=== PATIENT | male | born 1975 | race Two or more races ===

== ENCOUNTER 2017-11-04 17:45 | Emergency (ER) | payer SELFPAY ==
[2017-11-04 18:01] VITALS: BP 115/91; PULSE 109; TEMP 98.1; BMI 30.1
--- NOTE | 2017-11-04 18:19 | PDOC ---
History of Present Illness - General History Source: Patient Exam Limitations: No Limitations - History of Present Illness Initial Comments: 11/04/17 18:54 The patient is a 42 year old male, with no significant past medical history, who presents to the emergency department complaining of a subjective fever, chills, and dry cough since last night. Patient reports associated episodes of nausea and vomiting(nonbloody/nonbilious), but denies any abdominal pain, diarrhea, or constipation. Patient reports he has been taking Motrin for his fever, with mild relief. Patient denies any joint aches, headache, dizziness, sore throat, or ear ache. He denies any chest pain, shortness of breath, diaphoresis, or palpitations. He denies any dysuria, hematuria, frequency, or urgency. He denies any recent travel or sick contacts. Allergies: NKDA Past Surgical History: b/l inguinal hernia Social History: Current everyday smoker. No ETOH or recreational drug use. <Sammy Arndt - Last Filed: 11/04/17 18:54> <Meche Story - Last Filed: 11/04/17 19:14> - General Chief Complaint: Cold Symptoms Stated Complaint: fever,chills,dry cough,vomiting Time Seen by Provider: 11/04/17 18:19 Past History <Sammy Arndt - Last Filed: 11/04/17 18:54> - Past Medical History COPD: No Other medical history: pt denies - Surgical History Abdominal Surgery: Yes (B/L INGUINAL HERNIA.) - Suicide/Smoking/Psychosocial Hx Smoking History: Current every day smoker Have you smoked in the past 12 months: No Number of Cigarettes Smoked Daily: 1 Information on smoking cessation initiated: Yes 'Breaking Loose' booklet given: 11/04/17 Hx Alcohol Use: No Drug/Substance Use Hx: No Substance Use Type: Marijuana <Meche Story - Last Filed: 11/04/17 19:14> - Past Medical History Allergies/Adverse Reactions: Allergies Allergy/AdvReac Type Severity Reaction Status Date / Time No Known Allergies Allergy Verified 11/04/17 17:47 Home Medications: Ambulatory Orders Oseltamivir Phosphate [Tamiflu -] 75 mg PO BID #10 capsule 11/04/17 Review of Systems - Review of Systems Able to Perform ROS?: Yes Comments:: 11/04/17 18:54 GENERAL/CONSTITUTIONAL: Yes fever, chills. No weakness. HEAD, EYES, EARS, NOSE AND THROAT: No change in vision. No ear pain or discharge. No sore throat. CARDIOVASCULAR: No chest pain or shortness of breath. RESPIRATORY: Yes cough. No wheezing, or hemoptysis. GASTROINTESTINAL: Yes nausea, vomiting. No diarrhea or constipation. GENITOURINARY: No dysuria, frequency, or change in urination. MUSCULOSKELETAL: No joint or muscle swelling or pain. No neck or back pain. SKIN: No rash NEUROLOGIC: No headache, vertigo, loss of consciousness, or change in strength/ sensation. ENDOCRINE: No increased thirst. No abnormal weight change. HEMATOLOGIC/LYMPHATIC: No anemia, easy bleeding, or history of blood clots. ALLERGIC/IMMUNOLOGIC: No hives or skin allergy. <Arndt,Giomilsy - Last Filed: 11/04/17 18:54> *Physical Exam - Vital Signs Last Vital Signs Temp Pulse Resp BP Pulse Ox 98.1 F 109 H 18 115/91 98 11/04/17 17:46 11/04/17 17:46 11/04/17 17:46 11/04/17 17:46 11/04/17 17:46 - Physical Exam Comments: 11/04/17 18:55 GENERAL: Awake, alert, and fully oriented, in no acute distress. Warm to the touch. HEAD: No signs of trauma EYES: PERRLA, EOMI, sclera anicteric, conjunctiva clear ENT: Auricles normal inspection, hearing grossly normal, nares patent, oropharynx clear without exudates. Moist mucosa NECK: Normal ROM, supple, no lymphadenopathy, JVD, or masses LUNGS: Breath sounds equal, clear to auscultation bilaterally. No wheezes, and no crackles HEART: Tachycardic.Regular rhythm, normal S1 and S2, no murmurs, rubs or gallops ABDOMEN: Soft, nontender, normoactive bowel sounds. No guarding, no rebound. No masses EXTREMITIES: Normal range of motion, no edema. No clubbing or cyanosis. No cords, erythema, or tenderness NEUROLOGICAL: Cranial nerves II through XII grossly intact. Normal speech, normal gait SKIN: Warm, Dry, normal turgor, no rashes or lesions noted. <Arndt,Giomilsy - Last Filed: 11/04/17 18:54> - Vital Signs Last Vital Signs Temp Pulse Resp BP Pulse Ox 98.1 F 109 H 18 115/91 98 11/04/17 17:46 11/04/17 17:46 11/04/17 17:46 11/04/17 17:46 11/04/17 17:46 <Meche Story - Last Filed: 11/04/17 19:14> Medical Decision Making - Medical Decision Making 11/04/17 19:11 Pt presents to the ED complaining of symptoms consistent with viral syndrome-- will test for flu and treat with tamiflu if positive. <Meche Story - Last Filed: 11/04/17 19:14> *DC/Admit/Observation/Transfer - Attestations Scribe Attestion: 11/04/17 18:54 Documentation prepared by Sammy Arndt, acting as medical writer for Meche Story MD. <Sammy Arndt - Last Filed: 11/04/17 18:54> - Discharge Dispostion Admit: No <Meche Story - Last Filed: 11/04/17 19:14> Diagnosis at time of Disposition: Viral URI - Discharge Dispostion Disposition: HOME Condition at time of disposition: Good - Prescriptions Prescriptions: Oseltamivir Phosphate [Tamiflu -] 75 mg PO BID #10 capsule - Referrals - Patient Instructions Printed Discharge Instructions: Smoking Cessation, DI for Viral Upper Respiratory Infection -- Adult Additional Instructions: llama al ED en la [facility]. [place] [facility] si [place] flu es positivo. REgresa al ED si falta aire, si estas vomitando mucho, si tienes dolor de abdomino o dolor de anne muy toi. - Post Discharge Activity Forms/Work/School Notes: Back to Work
[2017-11-04] MEDS ORDERED: IBUPROFEN 400 MG TABLET (FP) PO ONE ×2 (18:50→18:55)
--- NOTE | 2017-11-04 22:18 | PDOC ---
*Physical Exam - Vital Signs Last Vital Signs Temp Pulse Resp BP Pulse Ox 98.1 F 109 H 18 115/91 98 11/04/17 17:46 11/04/17 17:46 11/04/17 17:46 11/04/17 17:46 11/04/17 17:46 ED Treatment Course - ADDITIONAL ORDERS Additional order review: 11/04/17 19:00 Influenza Types A,B Antigen (DEEPTI) - Final Nasopharyngeal Swab - Final - Medications Given in the ED: ED Medications Discontinued Medications Generic Name Dose Route Start Last Admin Trade Name Freq PRN Reason Stop Dose Admin Ibuprofen 800 mg 11/04/17 18:50 11/04/17 19:02 Motrin - PO 11/04/17 18:51 800 mg ONCE ONE Administration Progress Note - Progress Note Progress Note: Laboratory testing for influenza positive for influenza A. Patient called at , voicemail left that test was positive and that prescription for Tamiflu has been transmitted to his pharmacy by *DC/Admit/Observation/Transfer Diagnosis at time of Disposition: Viral URI, Influenza A - Discharge Dispostion Disposition: HOME Condition at time of disposition: Good - Prescriptions Prescriptions: Oseltamivir Phosphate [Tamiflu -] 75 mg PO BID #10 capsule - Referrals - Patient Instructions Printed Discharge Instructions: DI for Viral Upper Respiratory Infection -- Adult, Smoking Cessation Additional Instructions: [facility] al ED [facility]. [place] [facility] si [place] flu es positivo. REgresa al ED si falta aire, si estas vomitando mucho, si tienes dolor de abdomino o dolor de anne muy toi. - Post Discharge Activity Forms/Work/School Notes: Back to Work
== END 2017-11-04 19:21 | disposition home or self-care (01) ==
LOC: FER 17:45
DX: J06.9 Acute upper respiratory infection, unspecified (principal)
CPT/HCPCS: 87804; 99281-25

== ENCOUNTER 2018-02-27 19:17 | Emergency (ER) | payer SELFPAY ==
--- NOTE | 2018-02-27 19:24 | PDOC ---
History of Present Illness <Meche Story - Last Filed: 02/27/18 20:15> - General History Source: Patient Exam Limitations: No Limitations - History of Present Illness Initial Comments: 02/27/18 20:26 The patient is a 42 year old male with a past medical history of sore throats who presents to the emergency department for evaluation of sore throat. The patient reports moderate throat pain beginning on Saturday. He reports mild epigastric discomfort. The patient reports associated symptoms of nausea, intermittent episodes of fever, NBNB emesis at 230 pm today, and decreased PO intake secondary to emesis. The patient admits taking Motrin at 2pm today. Of note, the patient admits to taking amoxicillin and ampicillin from the [place] since Saturday. The patient denies chest pain, shortness of breath, headache, and dizziness. Denies chills, diarrhea, constipation, or any other urinary problems. Allergies: NKDA Past surgical history: Bilateral inguinal hernia. Social history: Former smoker. No reported alcohol or drug use. <Lola Tinajero - Last Filed: 02/27/18 20:27> - General Chief Complaint: Sore Throat Stated Complaint: sore throat Time Seen by Provider: 02/27/18 19:24 Past History - Past Medical History COPD: No - Surgical History Abdominal Surgery: Yes (B/L INGUINAL HERNIA.) - Suicide/Smoking/Psychosocial Hx Smoking History: Former smoker Have you smoked in the past 12 months: No Number of Cigarettes Smoked Daily: 1 Information on smoking cessation initiated: Yes 'Breaking Loose' booklet given: 02/27/18 Hx Alcohol Use: No Drug/Substance Use Hx: No Substance Use Type: None <Meche Story - Last Filed: 02/27/18 20:15> <Lola Tinajero - Last Filed: 02/27/18 20:27> - Past Medical History Allergies/Adverse Reactions: Allergies Allergy/AdvReac Type Severity Reaction Status Date / Time No Known Allergies Allergy Verified 02/27/18 19:18 Home Medications: Ambulatory Orders NK [No Known Home Medication] 02/27/18 Review of Systems - Review of Systems Able to Perform ROS?: Yes Comments:: GENERAL/CONSTITUTIONAL: (+)Fever. No chills. No weakness. HEAD, EYES, EARS, NOSE AND THROAT: (+)Sore throat. No change in vision. No ear pain or discharge. CARDIOVASCULAR: No chest pain or shortness of breath. RESPIRATORY: No cough, wheezing, or hemoptysis. GASTROINTESTINAL: (+)Epigastric discomfort. (+)Nausea. (+)vomiting. No diarrhea or constipation. GENITOURINARY: No dysuria, frequency, or change in urination. MUSCULOSKELETAL: No joint or muscle swelling or pain. No neck or back pain. SKIN: No rash NEUROLOGIC: No headache, vertigo, loss of consciousness, or change in strength/ sensation. ENDOCRINE: No increased thirst. No abnormal weight change. HEMATOLOGIC/LYMPHATIC: No anemia, easy bleeding, or history of blood clots. ALLERGIC/IMMUNOLOGIC: No hives or skin allergy. <Lola iTnajero - Last Filed: 02/27/18 20:27> *Physical Exam - Vital Signs Last Vital Signs Temp Pulse Resp BP Pulse Ox 98.6 F 84 16 128/89 100 02/27/18 19:18 02/27/18 19:18 02/27/18 19:18 02/27/18 19:18 02/27/18 19:18 <Meche Story - Last Filed: 02/27/18 20:15> - Vital Signs Last Vital Signs Temp Pulse Resp BP Pulse Ox 98.6 F 84 16 128/89 100 02/27/18 19:18 02/27/18 19:18 02/27/18 19:18 02/27/18 19:18 02/27/18 19:18 - Physical Exam Comments: GENERAL: Awake, alert, and fully oriented, in no acute distress HEAD: No signs of trauma EYES: PERRLA, EOMI, sclera anicteric, conjunctiva clear ENT: (+)Mild cervical lymphadenopathy. (+)Erythema with tonsillar swelling. (+) Small amount of white exudate. Auricles normal inspection, hearing grossly normal, nares patent. NECK: Normal ROM, supple, no lymphadenopathy, JVD, or masses LUNGS: Breath sounds equal, clear to auscultation bilaterally. No wheezes, and no crackles HEART: Regular rate and rhythm, normal S1 and S2, no murmurs, rubs or gallops ABDOMEN: Soft, nontender, normoactive bowel sounds. No guarding, no rebound. No masses EXTREMITIES: Normal range of motion, no edema. No clubbing or cyanosis. No cords, erythema, or tenderness NEUROLOGICAL: Cranial nerves II through XII grossly intact. Normal speech. SKIN: Warm, Dry, normal turgor, no rashes or lesions noted. <Lola Tinajero - Last Filed: 02/27/18 20:27> ED Treatment Course - ADDITIONAL ORDERS Additional order review: 02/27/18 19:35 Group A Strep Rapid Antigen - Final Throat NEGATIVE FOR THE ANTIGEN OF BETA HEMOLYTIC STREP GROUP A - Medications Given in the ED: ED Medications Discontinued Medications Generic Name Dose Route Start Last Admin Trade Name Freq PRN Reason Stop Dose Admin Ibuprofen 800 mg 02/27/18 19:37 02/27/18 19:48 Motrin - PO 02/27/18 19:38 800 mg ONCE ONE Administration Prednisone 40 mg 02/27/18 19:39 02/27/18 19:48 Deltasone - PO 02/27/18 19:40 40 mg ONCE ONE Administration <Lola Tinajero - Last Filed: 02/27/18 20:27> Medical Decision Making - Medical Decision Making 02/27/18 20:15 Patient presents to the ED complaining of a one week history of fever and sore throat. + exudate on throat exam. rapid strep is negative. Feels greatly improved after prednisone and motrin. Will discharge home. <Meche Story - Last Filed: 02/27/18 20:15> *DC/Admit/Observation/Transfer - Discharge Dispostion Decision to Admit order: No <Meche Story - Last Filed: 02/27/18 20:15> - Attestations Scribe Attestion: Documentation prepared by Lola Tinajero, acting as claim review medical director for Meche Story MD. <Lola Tinajero - Last Filed: 02/27/18 20:27> Diagnosis at time of Disposition: Exudative tonsillitis - Discharge Dispostion Disposition: HOME Condition at time of disposition: Good - Patient Instructions Printed Discharge Instructions: DI for Viral Upper Respiratory Infection -- Adult Additional Instructions: return to the ED for severe sore throat, unable to swallow or breathe, fever that persists for greater than 10 days, severe nausea and vomiting, other new or worsening symptoms. Follow up with your doctor within one week.
[2018-02-27 19:31] VITALS: BP 128/89; PULSE 84; TEMP 98.6; BMI 29.5
[2018-02-27] MEDS ORDERED: IBUPROFEN 400 MG TABLET (FP) PO ONE ×2 (19:37→19:46)
[2018-02-27] MEDS ORDERED: predniSONE 20 MG TABLET (UD) PO ONE (19:39)
[2018-02-27] MEDS ORDERED: predniSONE 20 MG TABLET (UD) ONE (19:46)
== END 2018-02-27 20:27 | disposition home or self-care (01) ==
LOC: FER 19:17
DX: J03.90 Acute tonsillitis, unspecified (principal); Z87.891 Personal history of nicotine dependence
CPT/HCPCS: 87070; 87430; 99281-25

== ENCOUNTER 2022-03-03 16:43 | Emergency (ER) | payer OTHER ==
[2022-03-03 16:53] VITALS: BP 128/85; PULSE 88; TEMP 98.1; BMI 30.1
[2022-03-03] MEDS ORDERED: ACETAMINOPHEN 325 MG TABLET (FP) PO ONE (17:17)
[2022-03-03] MEDS ORDERED: CYCLOBENZAPRINE HCL 10 MG TABLET (FP) PO ONE (17:17)
[2022-03-03] MEDS ORDERED: LIDOCAINE 5% TOPICAL PATCH TP ONE (17:17)
[2022-03-03] MEDS ORDERED: ACETAMINOPHEN 325 MG TABLET (FP) ONE (17:50)
[2022-03-03] MEDS ORDERED: CYCLOBENZAPRINE HCL 5 MG TABLET ONE (17:50)
[2022-03-03] MEDS ORDERED: LIDOCAINE 5% TOPICAL PATCH ONE (17:50)
[2022-03-03] MEDS ORDERED: LIDOCAINE PATCH REMOVAL MC SCH (22:00)
== END 2022-03-03 18:03 | disposition home or self-care (01) ==
LOC: FER 16:43
DX: S16.1XXA Strain of muscle, fascia and tendon at neck level, initial encounter (principal)
CPT/HCPCS: 99283-25

== ENCOUNTER 2022-08-28 05:47 | Day surgery (SDC) | payer OTHER ==
[2022-08-24 11:29] VITALS: BMI 33.0
[2022-08-28 10:32] VITALS: TEMP 98
[2022-08-28 10:50] VITALS: RESP 14
[2022-08-28 11:41] VITALS: BP 125/69; PULSE 80
== END 2022-08-28 11:17 | disposition home or self-care (01) ==
LOC: JASU-ENDO 05:47
PROVIDERS: ATTEND Internal Medicine Gastroenterology
PROC: 0DB78ZX Excision of Stomach, Pylorus, Via Natural or Artificial Opening Endoscopic, Diagnostic (ICD-10-PCS; 2022-08-28)
PROC: 0DB68ZX Excision of Stomach, Via Natural or Artificial Opening Endoscopic, Diagnostic (ICD-10-PCS; 2022-08-28)
PROC: 0DB98ZX Excision of Duodenum, Via Natural or Artificial Opening Endoscopic, Diagnostic (ICD-10-PCS; principal; 2022-08-28 10:00)
DX: K29.50 Unspecified chronic gastritis without bleeding (principal); K31.7 Polyp of stomach and duodenum
CPT/HCPCS: 88305-TC; 88342-TC

== ENCOUNTER → 2022-09-04 | Day surgery (SDC) | payer OTHER ==
[2022-08-29 08:16] VITALS: BMI 34.0
[~2022-09-04] MED LIST: KETAMINE HCL 500 MG/10 ML VIAL ONE
== END | disposition home or self-care (01) ==
LOC: JASU-ENDO 05:02
PROVIDERS: ATTEND Internal Medicine Gastroenterology
DX: Z53.9 Procedure and treatment not carried out, unspecified reason (principal)

== ENCOUNTER 2022-11-06 04:30 | Day surgery (SDC) | payer OTHER ==
[2022-11-01 12:40] VITALS: BMI 33.0
[2022-11-06 07:54] VITALS: RESP 18
[2022-11-06 10:31] VITALS: BP 155/98; PULSE 76
[2022-11-06 16:24] VITALS: TEMP 97
== END 2022-11-06 10:25 | disposition home or self-care (01) ==
LOC: JASU-ENDO 04:30
PROVIDERS: ATTEND Internal Medicine Gastroenterology
PROC: 0DBL8ZX Excision of Transverse Colon, Via Natural or Artificial Opening Endoscopic, Diagnostic (ICD-10-PCS; 2022-11-06)
PROC: 0DBN8ZX Excision of Sigmoid Colon, Via Natural or Artificial Opening Endoscopic, Diagnostic (ICD-10-PCS; 2022-11-06)
PROC: 0DBP8ZX Excision of Rectum, Via Natural or Artificial Opening Endoscopic, Diagnostic (ICD-10-PCS; principal; 2022-11-06 09:00)
DX: D12.3 Benign neoplasm of transverse colon (principal); D12.8 Benign neoplasm of rectum; K63.5 Polyp of colon; K57.30 Diverticulosis of large intestine without perforation or abscess without bleeding; K64.8 Other hemorrhoids; R93.3 Abnormal findings on diagnostic imaging of other parts of digestive tract
CPT/HCPCS: 88305-TC; C9803-CS; U0003; U0005

== ENCOUNTER 2024-08-27 12:06 | Emergency (ER) | payer OTHER ==
[2024-08-27] MEDS ORDERED: morphine SULFATE 4 MG/ML VIAL ONE ×2 (12:14→13:40)
[2024-08-27 12:17] VITALS: BMI 33.7
[2024-08-27] MEDS: morphine CARPU-JECT 4 MG/1 ML DISP.SYRIN IVPUSH ONE (12:18)
[2024-08-27] MEDS ORDERED: KETOROLAC TROMETHAMINE 15 MG/ML VIAL ONE (12:34)
[2024-08-27] MEDS: KETOROLAC TROMETHAMINE 15 MG/ML VIAL IVPUSH ONE (12:38)
[2024-08-27] MEDS: KETOROLAC TROMETHAMINE 30 MG/1 ML VIAL IVPUSH ONE (12:40)
[2024-08-27 12:59] LABS: BILIRUBIN,TOTAL 0.4 mg/dl (0.2-1); CALCIUM 9.8 mg/dl (8.5-10.1); CREATININE 1.2 mg/dl (0.6-1.3); POTASSIUM 3.8 mmol/L (3.5-5.1)
[2024-08-27 13:02] LABS: HEMATOCRIT 41.9 % (35.4-49); HEMOGLOBIN 14.5 G/dL (11.7-16.9); MCH 29.8 pg (25.7-33.7); MCHC 34.5 g/dl (32.0-35.9); MEAN CELL VOLUME 86.2 fl (80-96); MEAN PLT VOLUME 9.4 fl (7.5-11.1); PLATELET COUNT 286.5 10^3/uL (134-434); RBC 4.86 10^6/uL (4.00-5.60); RDW 13.1 % (11.9-15.9); WHITE BLOOD COUNT 11.1 10^3/uL (4.0-10.8)
[2024-08-27 13:10] LABS: PLATELET ESTIMATE ADEQUATE
[2024-08-27] MEDS ORDERED: ACETAMINOPHEN INJECTION 100 ML ONE (13:40)
[2024-08-27] MEDS: morphine SULFATE 4 MG/ML VIAL IVPUSH ONE (13:46)
[2024-08-27] MEDS: ACETAMINOPHEN 1000 MG/100 ML BAG IVPB ONE (13:47)
[2024-08-27 14:04] LABS: EPITHELIAL CELLS 0-5 /hpf
[2024-08-27 14:23] VITALS: BP 136/96; PULSE 73; RESP 18
[2024-08-27 15:50] VITALS: TEMP 98.8
== END 2024-08-27 15:55 | disposition home or self-care (01) ==
LOC: FER 12:06
PROC: 3E033NZ Introduction of Analgesics, Hypnotics, Sedatives into Peripheral Vein, Percutaneous Approach (ICD-10-PCS; principal; 2024-08-27)
PROC: 3E0333Z Introduction of Anti-inflammatory into Peripheral Vein, Percutaneous Approach (ICD-10-PCS; 2024-08-27)
PROC: 3E033NZ Introduction of Analgesics, Hypnotics, Sedatives into Peripheral Vein, Percutaneous Approach (ICD-10-PCS; 2024-08-27)
PROC: 3E033NZ Introduction of Analgesics, Hypnotics, Sedatives into Peripheral Vein, Percutaneous Approach (ICD-10-PCS; 2024-08-27)
DX: N20.0 Calculus of kidney (principal); R10.32 Left lower quadrant pain
CPT/HCPCS: 36415; 74176-TC; 80053; 81003; 81015; 83690; 83735; 85027; 87086; 96374; 96375; 96376; 99284-25; J0131